=== PATIENT | female | born 1955 | race Caucasian/White ===

== ENCOUNTER 2018-08-03 08:48 | Inpatient (IN) ==
[2018-08-03] MEDS ORDERED: methylPREDNISolone 125 MG/2 ML VIAL IVP ONE (08:57)
[2018-08-03] MEDS ORDERED: IPRATROPIUM/ALBUTEROL SULFATE 3 ML NEB NEB ONE (08:57)
--- NOTE | 2018-08-03 09:04 | EKG ---
[address] [address] Measurements Intervals [place] Rate: 81 P: 64 WV: 170 QRS: 136 QRSD: 138 T: 12 QT: 390 QTc: 428 Interpretive Statements SINUS RHYTHM RIGHT BUNDLE BRANCH BLOCK [120+ ms QRS DURATION, UPRIGHT V1, 40+ ms S IN I/aVL/V4/V5/V6] LEFT POSTERIOR FASCICULAR BLOCK [QRS AXIS > 109, INFERIOR Q] No previous ECG available for comparison Electronically Signed On 08-03-18 09:06:57 MST by Nico Fishman MD [id number]
[2018-08-03 09:24] LABS: Hematocrit [HCT] 49.7 % (37.0-47.0); Hemoglobin [HGB] 15.2 g/dL (12.0-16.0); MEAN CORPUSCULAR HEMOGLOBIN 31.4 PG (27-31); MEAN CORPUSCULAR HGB CONC 30.6 g/dL (33-37); MEAN CORPUSCULAR VOLUME 102.7 FL (81-99); MEAN PLATELET VOLUME 9.3 FL (7.4-12.2); RED BLOOD COUNT 4.84 10^6/uL (4.20-5.40)
--- NOTE | 2018-08-03 09:32 | PDOC ---
Dyspnea HPI - General Chief Complaint: Respiratory Complaint Stated Complaint: SHORTNESS OF BREATH, DIZZINESS Date Seen by Provider: 08/03/18 Time Seen by Provider: 09:10 Source: POSITIVE: Patient - History of Present Illness Initial Comments: Patient is a 63-year-old female presents to the emergency department the chief complaint of worsening shortness of breath and malaise. She reports that for the past several days she's been feeling weak and tired. She is found to be hy poxic on room air was given a DuoNeb and treatment by EMS. She is then placed on several liters with mild improvement of her hypoxia. She isn't placed on 15 L nonrebreather with marked improvement. She denies any chest pain. She denies any lower extremity edema. She denies any blurred vision double vision dizziness diarrhea or constipation. She has been expressing fevers. - Patient Home Medications Home Medications: Home Medications tiotropium bromide 18 mcg capsule with inhalation device 1 cap INH QD #90 cap 03/18/18 fluticasone 250 mcg-salmeterol 50 mcg/dose blistr powdr for inhalation 1 inh INH BID #3 units 04/26/18 ipratropium-albuterol 0.5 mg-3 mg(2.5 mg base)/3 mL nebulization soln 3 ml INH Q4-6H #30 vial 04/26/18 lisinopril 20 mg tablet 20 mg PO QD #14 tab 04/26/18 metoprolol tartrate 50 mg tablet 50 mg PO BID #180 tab 04/26/18 albuterol sulfate HFA 90 mcg/actuation aerosol inhaler 2 puff INH Q4-6H PRN #3 units 04/27/18 rosuvastatin 20 mg tablet 20 mg PO QD #14 tab 04/27/18 - Patient Allergies Allergies/Adverse Reactions: Allergies Allergy/AdvReac Type Severity Reaction Status Date / Time No Known Drug Allergies Allergy NOT Verified 08/03/18 10:03 APPLICABLE Past Medical History - heen HEENT History: Denies History Cardiovascular History: Hypertension Respiratory History: COPD, Home Oxygen Use, Other (please comment) Additional Respiratory History: HOME BIPAP WITH 3 LITERS O2 BLEED IN Gastrointestinal History: Denies History Additional Gastrointestinal History: APPY OUT AGE 16 Genitourinary History: Denies History Endocrine History: Denies History Musculoskeletal History: Denies History Prosthesis or Implant: No Neurological History: Denies History Blood Disorders: Denies History Psychiatric History: Denies History History of Sexually Transmitted Diseases: No Cancer History: Denies History In Past Year Been Physically Harmed or Verbally Threatened: No History of MDRO: No Tobacco Use: Current Every Day Smoker Alcohol Use: Heavy Type of alcohol normally used: Beer, Hard Liquor In the Past 12 Months, Have Used or Abuse Any Substance: None Previous Surgical History: No Type / Date of Surgery: APPY Significant Family History: No pertinent family hx ROS Constitution: REPORTS: Other (Review of systems: 12 point review of systems negative unless otherwise indicated above.) Dyspnea Physical Exam - General Appearance General Appearance: REPORTS: Other (Physical examination: HEENT: TMs clear bilaterally mucous murmurs moist with pharyngeal erythema and edema. Neck: Supple nontender full range of motion. Eyes: Extraocular motion intact, PERRL. Cardiac: Regular rate and rhythm without murmurs or click. No reproducible chest wall pain. Respiratory: Coarse lung sounds bilaterally without wheezes or rhonchi. Abdomen: Soft, nontender, nondistended no rebound or guarding. : Deferred. Musculoskeletal: Strength 5/5 to flexion and extension of the upper and lower extremities bilaterally. Good machine edge bander strength bilaterally. Neuro: Deep tendon reflexes 2/4 in patellars bilaterally. No numbness in hands or feet. Skin: Warm and dry without rashes or lesions. Heme/lymph: No anterior cervical or superior clavicular lymphadenopathy. No lower extremity edema. Psychiatric: Patient oriented and responding appropriately. Denies suicidal and homicidal ideation.) Dyspnea Progress - Results Reviewed by me Xrays/CTs/US Reviewed by me: Yes Radiology Findings: Nonspecific pulmonary edema Lab Results Reviewed by Me: Yes CBC and BMP: 08/03/18 09:15 08/03/18 09:15 Lab Results:: Laboratory Results 08/03/18 08/03/18 08/03/18 09:15 09:15 09:15 WBC 4.33 L RBC 4.84 Hgb 15.2 Hct 49.7 H MCV 102.7 H MCH 31.4 H MCHC 30.6 L RDW Std Deviation 58.5 H RDW Coeff of Elliott 15.5 H Plt Count 123 L MPV 9.3 Neutrophils % (Manual) 78 Band Neutrophils % 12 H Lymphocytes % (Manual) 7 L Monocytes % (Manual) 3 Eosinophils % (Manual) 0 Basophils % (Manual) 0 Metamyelocytes % 0 Myelocytes % 0 Promyelocytes % 0 Blast Cells 0 WBC Morphology Comment Normal morphology Plt Morphology Comment Normal morphology RBC Morph Comment See comments VBG pH VBG pCO2 VBG HCO3 VBG Base Excess Sodium 136 Potassium 4.3 Chloride 96 L Carbon Dioxide 33 Anion Gap 7 BUN 7 Creatinine 0.4 L Estimated GFR > 60 BUN/Creatinine Ratio 17.50 Glucose 112 H Calculated Osmolality 280.0 Calcium 9.2 Total Bilirubin 0.5 AST 26 ALT 27 Alkaline Phosphatase 64 Troponin I < 0.012 NT-Pro-B Natriuret Pep Total Protein 6.6 Albumin 4.0 Globulin 2.5 Albumin/Globulin Ratio 1.60 08/03/18 08/03/18 09:15 09:18 WBC RBC Hgb Hct MCV MCH MCHC RDW Std Deviation RDW Coeff of Elliott Plt Count MPV Neutrophils % (Manual) Band Neutrophils % Lymphocytes % (Manual) Monocytes % (Manual) Eosinophils % (Manual) Basophils % (Manual) Metamyelocytes % Myelocytes % Promyelocytes % Blast Cells WBC Morphology Comment Plt Morphology Comment RBC Morph Comment VBG pH 7.32 VBG pCO2 68 H VBG HCO3 35 H VBG Base Excess 9 H Sodium Potassium Chloride Carbon Dioxide Anion Gap BUN Creatinine Estimated GFR BUN/Creatinine Ratio Glucose Calculated Osmolality Calcium Total Bilirubin AST ALT Alkaline Phosphatase Troponin I NT-Pro-B Natriuret Pep 335 H Total Protein Albumin Globulin Albumin/Globulin Ratio EKG Interpreted/Reviewed By Me:: Yes (no acute ST or QT abnormality) - Patient's Progress MDM / ED Course: An IV was established and the patient was connected to monitoring and evaluation advisor and closely observed in the emergency department. She required several breathing treatments in the emergency department without significant improvement of her hypoxia. EKG did not reveal any acute ST or QT abnormality. Her troponin was not elevated. Chest x-ray revealed nonspecific pulmonary edema. The patient was given 125 g of Solu-Medrol for wheezing and COPD component. She is given 40 g of Lasix IV for the pulmonary edema. Given the ongoing oxygen requirement I recommended admission to the hospital for further management. Her BMP was not markedly elevated. She did test positive for influenza A was given Tamiflu. I discussed these findings with Dr. Abundio Medina who agreed to admit the patient for further management coordination. - Consult Consult (If Yes, Name of Consulting MD & Time Called): Yes Consulting MD will see pt:: [facility] Patient Care Time - Estimated PCT Patient Care Time (In Minutes): 65 Vital Signs - Recent Vital Signs Vital Signs: Vital Signs (Last 8 hours) Temp Pulse Pulse Resp BP Pulse Ox 08/03/18 09:09 91 20 100 08/03/18 09:08 86 18 98 08/03/18 09:03 81 08/03/18 08:45 98.6 F 83 28 H 156/96 96 Discharge Clinical Impression: Influenza, Respiratory failure, Pulmonary edema Discharge Disposition: Admit to Observation Condition: Stable Follow Up With: PEARL LARSON [Primary Care Provider] - Care Transferred To: Abundio Medina Date Decision to Admit to Inpatient: 08/03/18 Time Decision to Admit to Inpatient: 10:27
[2018-08-03 09:39] LABS: BLOOD UREA NITROGEN 7 mg/dL (7-22)
[2018-08-03 09:41] LABS: PLATELET MORPHOLOGY COMMENT NORMAL MORPHOLOGY (NORM); RBC MORPHOLOGY COMMENT SEE COMMENTS (NORM); WBC MORPHOLOGY COMMENT NORMAL MORPHOLOGY (NORM)
[2018-08-03 09:42] LABS: BAND NEUTROPHILS % 12 % (0-10); BASOPHILS % (MANUAL) 0 % (0-1); EOSINOPHILS % (MANUAL) 0 % (0-8); METAMYELOCYTES % 0 %; MONOCYTES % (MANUAL) 3 % (0-12); MYELOCYTES % 0 %; NEUTROPHILS % (MANUAL) 78 % (50-80); PROMYELOCYTES % 0 %
[2018-08-03 09:46] LABS: VENOUS PH 7.32 (7.32-7.42)
--- NOTE | 2018-08-03 09:50 | DI ---
AP CHEST X-RAY, 08/03/2018 8:58 AM : Clinical History: Shortness of breath. Previous Exam: 06/05/2009. Soft Tissues: No acute soft tissue abnormality. Bones: Normal. Heart: Normal heart. Lungs: Acute pulmonary edema is present. With the normal sized heart, the differential would include acute myocardial infarction, an acute [employer] vascular accident, inhalation of a noxious gas, and acute r enal failure. Aspiration would be less likely. Effusion(s): None. Mediastinum: Normal mediastinum. Nodules: No pulmonary nodules. Reading: Acute pulmonary edema with normal-sized heart. Differential is as above.
[2018-08-03] MEDS ORDERED: FUROSEMIDE 10 MG/1 ML - 4 ML IVP ONE ×2 (10:14→12:08)
[2018-08-03] MEDS ORDERED: OSELTAMIVIR PHOSPHATE 75 MG CAPSULE PO ONE (10:15)
[2018-08-03] MEDS ORDERED: ONDANSETRON 4 MG/2 ML VIAL IV PRN (11:23)
[2018-08-03] MEDS ORDERED: Acetaminophen 1000mg Inj 1,000 MG/100 ML VIAL IV PRN (11:23)
[2018-08-03] MEDS ORDERED: LIDOCAINE HCL 2 % 10 ML JELLY URO-JECT TOPICAL PRN (11:23)
[2018-08-03] MEDS ORDERED: ALBUTEROL SULFATE 2.5 MG/3 ML NEB PRN (11:23)
[2018-08-03] MEDS ORDERED: LIDOCAINE W/ SODIUM BICARB 0.5 ML SYR SUBD PRN (11:23)
[2018-08-03] MEDS ORDERED: Sodium Chloride 0.9% 1,000 ML PRIMARY IV SCH (11:23)
--- NOTE | 2018-08-03 11:58 | PDOC ---
HPI - History of Present Illness Date of Service: 08/03/18 Time of Service: 11:52 Chief Complaint: Cough and shortness of breath History of Present Illness: This very pleasant 3-year-old female with COPD and hypertension and 1-1/2 packs per day smoking habit who comes in today with worsening shortness breath and cough. She states her symptoms started around Wednesday. She's had fevers and chills and a stridor breathing therapies and Tylenol and Motrin without a lot of relief over the last couple of days. When she came in to the emergency room, chest x-ray was consistent with pulmonary edema, and she was positive for influenza A. She states that she got the flu shot at the end of April. She states that interventions in the emergency room did help. She was found to be hypoxic, was cyanotic around the face, and had hypercapnia as well. She was placed on 15 L nonrebreather when the ambulance first arrived and was titrated down to 10 L here in the emergency room. She did get a dose of steroids at a dose of Tamiflu in the emergency room. Past Medical History Medical History: 1. COPD, on 3 L of oxygen at night. 2. Tobacco abuse at one and a half packs per day. 3. Hypertension Surgical History: 1. Remote history of appendectomy Pertinent Family History: No significant family history of heart disease. Past Social History: Smokes pack and half per day. Does not drink alcohol. . Has 2 children described as healthy. Lives in [place], [place]. Tobacco Use: Current Every Day Smoker In the Past 12 Months, Have Used or Abuse Any of the Following Substance: None Alcohol Use: None Medication / Allergies Home Medications: Home Medications Medication Instructions Recorded Confirmed Type tiotropium bromide 18 mcg capsule 1 cap INH QD #90 cap 03/18/18 08/03/18 Rx with inhalation device fluticasone 250 mcg-salmeterol 50 1 inh INH BID #3 units 04/26/18 08/03/18 Rx mcg/dose blistr powdr for inhalation ipratropium-albuterol 0.5 mg-3 3 ml INH Q4-6H #30 vial 04/26/18 08/03/18 Rx mg(2.5 mg base)/3 mL nebulization soln lisinopril 20 mg tablet 20 mg PO QD #14 tab 04/26/18 08/03/18 Rx metoprolol tartrate 50 mg tablet 50 mg PO BID #180 tab 04/26/18 08/03/18 Rx albuterol sulfate HFA 90 2 puff INH Q4-6H PRN #3 units 04/27/18 08/03/18 Rx mcg/actuation aerosol inhaler rosuvastatin 20 mg tablet 20 mg PO QD #14 tab 04/27/18 08/03/18 Rx Allergies/Adverse Reactions: Allergies Allergy/AdvReac Type Severity Reaction Status Date / Time No Known Drug Allergies Allergy NOT Verified 08/03/18 10:03 APPLICABLE Review of Systems - Review of Systems All Systems: Reviewed & No Additional Complaints Except as Stated (I did a 12 point review systems and it was negative other than that discussed below and in the history of present illness.) Exam - Vitals Vital Signs: Vital Signs Temperature 98.6 F Temperature Source Temporal Artery Scan Pulse Rate [Pulse Oximeter] 83 Pulse Rate 91 Respiratory Rate 20 Blood Pressure [Left Arm] 156/96 Pulse Ox 100 Oxygen Flow Rate 10 Oxygen Delivery Method Non-Rebreather Mask Height 5 ft 2 in Weight 230 lb During my examination, even on 10 L nonrebreather with an oxygen mask, the patient still desaturates to 88% at times and she is working hard at breathing at 20-30 times per minute. - General General Appearance: No Acute Distress, Cooperative - Head Head Exam: Normal Inspection, Normocephalic, Atraumatic - Eye Eye Exam: POSITIVE: No Scleral Icterus - ENT ENT Exam: POSITIVE: Mucous Membranes Moist - Neck Neck Exam: Normal Inspection, No Tenderness, No Lymphadenopathy, No Thyromegaly, JVP is not Raised - Respiratory Respiratory Exam: POSITIVE: Coarse Breath Sounds, Respiratory Distress (Is working hard to breathe at 20-30 times per minute) Additional Respiratory Exam Details: Cyanotic around the lips and cheeks - Cardiovascular Cardiovascular Exam: POSITIVE: No Murmur, No Clicks, No Gallops, No Rubs, Tachycardia, No JVD - GI/Abdominal GI/Abdominal Exam: POSITIVE: Normal Bowel Sounds, Non Tender, Non Distended, Soft - Extremities Extremities Exam: POSITIVE: No Clubbing Present, No Edema Present, No Cyanosis Present - Back Back Exam: POSITIVE: No CVA Tenderness - Neurological Neurological Exam: POSITIVE: Alert, Oriented x 3, No Facial Droop, Speech Intact / Clear, Moves All Extremities Equally - Psychiatric Psychiatric Exam: POSITIVE: Normal Affect, Normal Mood - Integumentary Integumentary Exam: POSITIVE: Cyanosis Results - Labs CBC and BMP: 08/03/18 09:15 08/03/18 09:15 Additional Lab Results: Laboratory Results 08/03/18 08/03/18 08/03/18 09:15 09:15 09:15 WBC 4.33 L RBC 4.84 Hgb 15.2 Hct 49.7 H MCV 102.7 H MCH 31.4 H MCHC 30.6 L RDW Std Deviation 58.5 H RDW Coeff of Elliott 15.5 H Plt Count 123 L MPV 9.3 Neutrophils % (Manual) 78 Band Neutrophils % 12 H Lymphocytes % (Manual) 7 L Monocytes % (Manual) 3 Eosinophils % (Manual) 0 Basophils % (Manual) 0 Metamyelocytes % 0 Myelocytes % 0 Promyelocytes % 0 Blast Cells 0 WBC Morphology Comment Normal morphology Plt Morphology Comment Normal morphology RBC Morph Comment See comments VBG pH VBG pCO2 VBG HCO3 VBG Base Excess Sodium 136 Potassium 4.3 Chloride 96 L Carbon Dioxide 33 Anion Gap 7 BUN 7 Creatinine 0.4 L Estimated GFR > 60 BUN/Creatinine Ratio 17.50 Glucose 112 H Calculated Osmolality 280.0 Calcium 9.2 Total Bilirubin 0.5 AST 26 ALT 27 Alkaline Phosphatase 64 Troponin I < 0.012 NT-Pro-B Natriuret Pep Total Protein 6.6 Albumin 4.0 Globulin 2.5 Albumin/Globulin Ratio 1.60 08/03/18 08/03/18 09:15 09:18 WBC RBC Hgb Hct MCV MCH MCHC RDW Std Deviation RDW Coeff of Elliott Plt Count MPV Neutrophils % (Manual) Band Neutrophils % Lymphocytes % (Manual) Monocytes % (Manual) Eosinophils % (Manual) Basophils % (Manual) Metamyelocytes % Myelocytes % Promyelocytes % Blast Cells WBC Morphology Comment Plt Morphology Comment RBC Morph Comment VBG pH 7.32 VBG pCO2 68 H VBG HCO3 35 H VBG Base Excess 9 H Sodium Potassium Chloride Carbon Dioxide Anion Gap BUN Creatinine Estimated GFR BUN/Creatinine Ratio Glucose Calculated Osmolality Calcium Total Bilirubin AST ALT Alkaline Phosphatase Troponin I NT-Pro-B Natriuret Pep 335 H Total Protein Albumin Globulin Albumin/Globulin Ratio - EKG Data -: EKG Interpreted by Me Rate: Normal EKG Shows Normal: Sinus Rhythm - EKG Data EKG Interpretation: Other - Imaging Status: Image Reviewed by Me (CXR, on my view, consistent with pulmonary edema.) Assessment and Plan - Patient Problems (1) Acute respiratory failure with hypoxia and hypercapnia Current Visit: Yes Status: Acute Code(s): J96.01 - Acute respiratory failure with hypoxia; J96.02 - Acute respiratory failure with hypercapnia (2) Influenza Current Visit: Yes Status: Acute Code(s): J11.1 - Influenza due to unidentified influenza virus with other respiratory manifestations (3) COPD (chronic obstructive pulmonary disease) Current Visit: Yes Status: Chronic Code(s): J44.9 - Chronic obstructive pulmonary disease, unspecified Qualifiers: COPD type: chronic bronchitis Chronic bronchitis type: simple Qualified Code(s): J41.0 - Simple chronic bronchitis (4) Obesity Current Visit: Yes Status: Chronic Code(s): E66.9 - Obesity, unspecified Qualifiers: Obesity type: due to excess calories Obesity classification: adult class 3 (BMI >= 40) Serious obesity comorbidity presence: with serious comorbidity B jhonatan mass index: BMI 40.0-44.9 Qualified Code(s): E66.01 - Morbid (severe) obesity due to excess calories; Z68.41 - Body mass index (BMI) 40.0-44.9, adult (5) Hypertension Current Visit: Yes Status: Chronic Code(s): I10 - Essential (primary) hypertension Qualifiers: Hypertension type: essential hypertension Qualified Code(s): I10 - Essential (primary) hypertension - Assessment / Plan Additional Assessment/Plan Details: Admit to ICU. Breathing therapies and supportive care for influenza A. Hold off on IV fluids with pulmonary edema, we'll give another dose of Lasix now, and see how patient responds to fluid balance. May get echocardiogram at possible. Tamiflu. We'll plan on a 5 day course patient states that she did have flu vaccine. I offered to write a prescription for her for prophylactic Tamiflu as well. Smoking cessation and nicotine patch. Vapotherm during the day, and BiPAP therapy at night. I spoke with the fisher quahog with our eICU program and that's what she suggested and I think that that makes most sense for the patient. I would push the chest x-ray up to Jason just on the off chance that the patient gets worse, develops ARDS, and ends up needing shift. I told the patient it would be touch and go. Possible she could get worse. She is full code. She understands that she is very ill. Droplet precautions. Labs in a.m. Venous blood gas in a.m. Prognosis guarded.
[2018-08-03] MEDS ORDERED: NICOTINE 21 MG /DAY PATCH TRANSDERM ONE (12:06)
[2018-08-03] MEDS: IPRATROPIUM/ALBUTEROL SULFATE 3 ML NEB NEB SCH ×2 (13:12→18:23)
[2018-08-03] MEDS ORDERED: Rosuvastatin Tab 20 MG TAB PO SCH (21:00)
[2018-08-03] MEDS: OSELTAMIVIR PHOSPHATE 75 MG CAPSULE PO SCH (21:06)
[2018-08-03] MEDS: Metoprolol TARTRATE Tab 50 MG TAB PO SCH (21:06)
[2018-08-04] MEDS: IPRATROPIUM/ALBUTEROL SULFATE 3 ML NEB NEB SCH ×2 (00:46→06:09)
[2018-08-04 05:11] LABS: VENOUS PH 7.28 (7.32-7.42)
[2018-08-04 05:57] LABS: BASOPHILS # (AUTO) 0.01 10*3/UL; BASOPHILS % (AUTO) 0.2 % (0-1); EOSINOPHILS # (AUTO) 0 10*3/UL; EOSINOPHILS % (AUTO) 0 % (0-8); Hematocrit [HCT] 49.7 % (37.0-47.0); LYMPHOCYTES # (AUTO) 0.46 10*3/uL; MEAN CORPUSCULAR HEMOGLOBIN 31.3 PG (27-31); MEAN CORPUSCULAR HGB CONC 30.2 g/dL (33-37); MEAN CORPUSCULAR VOLUME 103.5 FL (81-99); MONOCYTES # (AUTO) 0.49 10*3/UL (0.3-0.8); MONOCYTES % (AUTO) 11.6 % (5-15); NEUTROPHILS # (AUTO) 3.22 10*3/UL; NEUTROPHILS % (AUTO) 76.6 % (50-80)
[2018-08-04 06:18] LABS: BLOOD UREA NITROGEN 14 mg/dL (7-22); SERUM ALBUMIN 3.8 g/dL (3.5-4.8)
[2018-08-04 06:31] LABS: PLATELET MORPHOLOGY COMMENT NORMAL MORPHOLOGY (NORM); RBC MORPHOLOGY COMMENT NORMAL MORPHOLOGY (NORM); WBC MORPHOLOGY COMMENT NORMAL MORPHOLOGY (NORM)
--- NOTE | 2018-08-04 08:36 | EKG ---
[address] [address] Measurements Intervals [place] Rate: 65 P: 90 OR: 175 QRS: 229 QRSD: 138 T: 43 QT: 424 QTc: 436 Interpretive Statements SINUS RHYTHM WITH SINUS ARRHYTHMIA INDETERMINATE AXIS RIGHT BUNDLE BRANCH BLOCK [120+ ms QRS DURATION, UPRIGHT V1, 40+ ms S IN I/aVL/V4/V5/V6] LEFT POSTERIOR FASCICULAR BLOCK [QRS AXIS > 109, INFERIOR Q] Compared to ECG 08/03/2018 09:03:42 Indeterminate axis now present Electronically Signed On 08-04-18 09:32:02 MST by Nico Fishman MD [id number]
[2018-08-04] MEDS ORDERED: NICOTINE 21 MG /DAY PATCH TRANSDERM SCH (09:00)
[2018-08-04] MEDS ORDERED: PANTOPRAZOLE IV 40 MG VIAL IVP SCH (09:00)
[2018-08-04] MEDS ORDERED: Patch Removal PATCH TRANSDERM SCH (09:00)
[2018-08-04] MEDS ORDERED: LISINOPRIL 20 MG TABLET PO SCH (09:00)
[2018-08-04] MEDS ORDERED: ENOXAPARIN SODIUM 40 MG/0.4 ML SYRINGE SUBCUT SCH (09:00)
[2018-08-04] MEDS ORDERED: ASPIRIN 81 MG (BABY) CHEWABLE TABLET ONE (09:08)
[2018-08-04] MEDS ORDERED: ASPIRIN 81 MG (BABY) CHEWABLE TABLET PO SCH (09:15)
[2018-08-04 09:36] LABS: VENOUS PH 7.29 (7.32-7.42)
[2018-08-04] MEDS: Metoprolol TARTRATE Tab 50 MG TAB PO SCH (09:41)
[2018-08-04] MEDS: OSELTAMIVIR PHOSPHATE 75 MG CAPSULE PO SCH (09:42)
[2018-08-04 10:20] VITALS: O2SAT 94
--- NOTE | 2018-08-04 10:31 | DI ---
CT CTA Chest Non-Coronary WWO 08/04/2018 8:57 AM History: [facility] [place] ^PE ^if d dimer negative cancel order Comparison: Chest x-ray 04/04/2014. Procedure: CT angiography of the pulmonary arteries was performed after the administration of 65 mL o f Isovue intravenous contrast. Findings: Contrast bolus timing is suboptimal. There is normal opacification of the main and proximal segmental pulmonary arteries with no evidence of filling defect. Evaluation for more distal emboli i s limited. Evaluation of the lungs demonstrates patchy groundglass nodules and tree in bud opacities in the upper lobes. There is no dense consolidation, pleural effusion, or pneumothorax. Scar versus a telectasis is noted along the medial right middle lobe and lingula. There is moderate to severe diffu se bronchial wall thickening. Shotty mediastinal and hilar lymph nodes are present, not pathologicall y enlarged by CT size criteria. The aorta and branch vessels demonstrate normal course and caliber. T here are scattered atheromatous aortic and coronary artery calcifications. Heart size is within rodríguez l limits with no pericardial effusion. The thyroid exhibits normal CT morphology. The visualized upper abdominal structures are unremarkable. The osseous structures are normal for age. There is no evidence of acute or healing rib fractures. Impression: 1. No main or proximal segmental pulmonary embolism. 2. Patchy groundglass nodules and tree in but opacities in the upper lobes. This is a nonspecific fin ding with a broad differential that includes infectious and inflammatory etiologies. A neoplastic pro cess cannot be excluded and repeat imaging 6 weeks following completion of therapy is recommended in order to ensure resolution. 3. Moderate to severe diffuse bronchial wall thickening. Associated with acute versus chronic bronchi tis.
--- NOTE | 2018-08-04 10:56 | DCSUMMARY ---
Hospitalization Summary Admit Date: 08/03/2017 Discharge Date: 08/04/18 Primary Diagnosis:: acute on chronic hypercapnic and hypoxic respiratory dong Secondary Diagnosis:: Respiratory failure, EKG changes with T-wave inversions in precordial leads, COPD with CO2 retention. Hospital Course: This very pleasant 63-year-old female that presented here yesterday with acute on chronic respiratory failure, hypercapnic and hypoxic, and was found to be positive for influenza A. She was admitted, maintained on Vapotherm therapy through the day, BiPAP overnight. Her CO2 is elevated, but she actually clinically feels better and is breathing a little less labored on BiPAP this morning. Are very astute RN noticed that the patient had some EKG changes on the telemetry monitoring and an EKG was ordered and the patient was found to have T-wave inversions in the precordial leads that were new from EKG at admission. The patient was also managed in conjunction with her eICU specialist, and in discussion we felt it would be best to move the patient to a higher level of care for continued cardiac evaluation in the setting of this acute respiratory failure and influenza. Initial troponin is negative. CPK was slightly elevated. The patient states that she feels somewhat better from a shortness of breath standpoint. She still quite wheezy on examination. She is requiring BiPAP to maintain her oxygen saturations. She denies any chest pain despite EKG changes. The patient does not have any nausea or vomiting. An echocardiogram was performed yesterday and the results are pending. CT scan of the chest was done today. It is negative for pulmonary emboli. I did review the study. There is what appears to be fairly severe emphysema and probable bronchiectasis as well, the radiologist did not see any evidence of pulmonary emboli. I do not see any infiltrate. Assessment and Plan: 1. As per discharge assessments noted 2. Disposition: Patient is discharged to [facility] 3. Condition on discharge, stable and improved. Based on EKG changes, the patient's condition could deteriorate, but she is stabilized to the best of our ability here and is in no imminent danger of needing intubation on her current settings of BiPAP. Again this could certainly change based on her underlying condition 4. Diet: regular diet 5. Activities: As per [facility] physicians 6. Follow-Up: 1. Primary care physician in [place], [place] 7 days post discharge 2. 7. Medications at the Time of Discharge: Active Medications Generic Name Dose Route Start Last Admin Trade Name Freq PRN Reason Stop Dose Admin Albuterol Sulfate 2.5 mg 08/03/18 11:23 Albuterol Neb Soln 0.083% NEB RTQ4H PRN Shortness of Breath Albuterol/Ipratropium 3 ml 08/03/18 13:00 08/04/18 06:09 Duoneb Neb Soln NEB 3 ml RTQ6H ALISHA Administration Aspirin 162 mg 08/04/18 09:15 08/04/18 09:00 Aspirin Chewable Tab PO 162 mg STAT ALISHA Administration Enoxaparin Sodium 40 mg 08/04/18 09:00 08/04/18 09:41 Lovenox Inj SUBCUT 40 mg DAILY ALISHA Administration Acetaminophen 1,000 mg in 100 mls @ 400 mls/hr 08/03/18 11:23 Ofirmev 1000mg Inj IV Q6H PRN Pain Sodium Chloride 25 mls @ 200 mls/hr 08/03/18 11:23 Normal Saline 0.9% IV .Post Infusion PRN No Primary IV for Flush ONLY Lidocaine HCl 10 ml 08/03/18 11:23 Xylocaine Uro-Ject 2% TOPICAL ONCE PRN Discomfort catheter insertion Lidocaine HCl 0.5 ml 08/03/18 11:23 Lidocaine Buffered Inj SUBD ONCE PRN IV Starts Lisinopril 20 mg 08/04/18 09:00 08/04/18 09:41 Prinivil PO 20 mg DAILY ALISHA Administration Metoprolol Tartrate 50 mg 08/03/18 21:00 08/04/18 09:41 Lopressor Tab PO 50 mg BID ALISHA Administration Nicotine 1 patch 08/04/18 09:00 08/04/18 09:42 Nicoderm Cq 21mg Patch TRANSDERM 1 patch DAILY ALISHA Administration Non-Formulary Medication 1 08/04/18 09:00 08/04/18 09:43 Remove Patch TRANSDERM 1 DAILY ALISHA Administration Ondansetron HCl 4 mg 08/03/18 11:23 Zofran Inj IV Q4H PRN NAUSEA / VOMITING Oseltamivir Phosphate 75 mg 08/03/18 21:00 08/04/18 09:42 Tamiflu PO 75 mg BID ALISHA Administration Pantoprazole Sodium 40 mg 08/04/18 09:00 08/04/18 09:42 Protonix Inj IVP 40 mg DAILY ALISHA Administration Rosuvastatin Calcium 20 mg 08/03/18 21:00 08/03/18 21:06 Crestor PO 20 mg BEDTIME ALISHA Administration 8. Time, care, counseling and coordination of care for this discharge is greater than 30 minutes. Exam - Vitals Vital Signs: Vital Signs Temperature 97.6 F Temperature Source Temporal Artery Scan Pulse Rate [Telemetry] 75 Pulse Rate [Apical] 64 Pulse Rate [Pulse Oximeter] 64 Pulse Rate 62 Respiratory Rate 24 Blood Pressure [Right Arm] 115/63 Blood Pressure [Right Radial 115/63 Artery] Blood Pressure [Left Arm] 119/53 Blood Pressure 135/65 Pulse Ox 94 Oxygen Flow Rate 30 Oxygen Delivery Method Bi-PAP Height 5 ft 2 in Weight 234 lb 3.2 oz - General General Appearance: Cooperative, Obese - Head Head Exam: Normal Inspection, Normocephalic, Atraumatic - Eye Eye Exam: POSITIVE: No Scleral Icterus - ENT ENT Exam: POSITIVE: Mucous Membranes Moist - Respiratory Respiratory Exam: POSITIVE: Breathing Non Labored (On BiPAP at this time nonlabored), Wheezes, Coarse Breath Sounds - Cardiovascular Cardiovascular Exam: POSITIVE: RRR, No Murmur, No Clicks, No Gallops, No Rubs, No JVD - GI/Abdominal GI/Abdominal Exam: POSITIVE: Normal Bowel Sounds, Non Tender, Non Distended, Soft - Extremities Extremities Exam: POSITIVE: +1 Edema (Trace lower extremity edema present) - Neurological Neurological Exam: POSITIVE: Alert, Oriented x 3, No Facial Droop, Speech Intact / Clear, Moves All Extremities Equally - Psychiatric Psychiatric Exam: POSITIVE: Normal Affect, Normal Mood - Integumentary Integumentary Exam: POSITIVE: Cyanosis (Interface. Seems more pronounced today despite improvement in symptoms.) Data Peritnent Studies: Laboratory Results 08/04/18 08/04/18 08/04/18 05:00 05:00 05:00 WBC 4.21 L RBC 4.80 Hgb 15.0 Hct 49.7 H MCV 103.5 H MCH 31.3 H MCHC 30.2 L RDW Std Deviation 58.9 H RDW Coeff of Elliott 15.6 H Plt Count 128 L MPV 10.0 Immature Gran % (Auto) 0.7 Neut % (Auto) 76.6 Lymph % (Auto) 10.9 [place] % (Auto) 11.6 Eos % (Auto) 0 Baso % (Auto) 0.2 Immature Gran # (Auto) 0.03 Neut # (Auto) 3.22 Lymph # (Auto) 0.46 [place] # (Auto) 0.49 Eos # (Auto) 0 Baso # (Auto) 0.01 WBC Morphology Comment Normal morphology Plt Morphology Comment Normal morphology RBC Morph Comment Normal morphology D-Dimer VBG pH VBG pCO2 VBG HCO3 VBG Base Excess Sodium 136 Potassium 4.2 Chloride 94 L Carbon Dioxide 37 H Anion Gap 5 BUN 14 Creatinine 0.5 Estimated GFR > 60 BUN/Creatinine Ratio 28.00 H Glucose 107 Calculated Osmolality 282.0 Lactic Acid 0.7 Calcium 9.3 Total Bilirubin 0.5 AST 27 ALT 24 Alkaline Phosphatase 59 Total Creatine Kinase Troponin I Total Protein 6.5 Albumin 3.8 Globulin 2.6 Albumin/Globulin Ratio 1.40 08/04/18 08/04/18 08/04/18 05:00 08:55 08:55 WBC RBC Hgb Hct MCV MCH MCHC RDW Std Deviation RDW Coeff of Elliott Plt Count MPV Immature Gran % (Auto) Neut % (Auto) Lymph % (Auto) [place] % (Auto) Eos % (Auto) Baso % (Auto) Immature Gran # (Auto) Neut # (Auto) Lymph # (Auto) [place] # (Auto) Eos # (Auto) Baso # (Auto) WBC Morphology Comment Plt Morphology Comment RBC Morph Comment D-Dimer VBG pH 7.28 L VBG pCO2 82 H VBG HCO3 39 H VBG Base Excess 12 H Sodium Potassium Chloride Carbon Dioxide Anion Gap BUN Creatinine Estimated GFR BUN/Creatinine Ratio Glucose Calculated Osmolality Lactic Acid Calcium Total Bilirubin AST ALT Alkaline Phosphatase Total Creatine Kinase 151 H Troponin I < 0.012 Total Protein Albumin Globulin Albumin/Globulin Ratio 08/04/18 08/04/18 09:00 09:32 WBC RBC Hgb Hct MCV MCH MCHC RDW Std Deviation RDW Coeff of Elliott Plt Count MPV Immature Gran % (Auto) Neut % (Auto) Lymph % (Auto) [place] % (Auto) Eos % (Auto) Baso % (Auto) Immature Gran # (Auto) Neut # (Auto) Lymph # (Auto) [place] # (Auto) Eos # (Auto) Baso # (Auto) WBC Morphology Comment Plt Morphology Comment RBC Morph Comment D-Dimer 0.64 H VBG pH 7.29 L VBG pCO2 87 H VBG HCO3 42 H VBG Base Excess 15 H Sodium Potassium Chloride Carbon Dioxide Anion Gap BUN Creatinine Estimated GFR BUN/Creatinine Ratio Glucose Calculated Osmolality Lactic Acid Calcium Total Bilirubin AST ALT Alkaline Phosphatase Total Creatine Kinase Troponin I Total Protein Albumin Globulin Albumin/Globulin Ratio Blood cultures are negative at this point. influenza A positive Procedures: [address] Medicine. [facility] [place] [id number] PH: DD: [phone] FAX: [phone] ~DIAGNOSTIC IMAGING REPORT~ Patient: Christine Krishnamurthy : 1955 Sex: F Age: 63 Exam Name: CT CTA Chest Non-Coronary [facility] Exam Date: 08/04/18 Report # : [id number] CPT Code: 00032 EMR/MR #: [id number] Ordering: Jodi Jeffery Admiting: MARSHA KASPER DO Primary: Benny Polk MD Attending: MARSHA KASPER DO Signed CT CTA Chest Non-Coronary [facility] 08/04/2018 8:57 AM History: [facility] [place] ^if d dimer negative cancel order Comparison: Chest x-ray 04/04/2014. Procedure: CT angiography of the pulmonary arteries was performed after the administration of 65 mL of Isovue intravenous contrast. Findings: Contrast bolus timing is suboptimal. There is normal opacification of the main and proximal segmental pulmonary arteries with no evidence of filling defect. Evaluation for more distal emboli is limited. Evaluation of the lungs demonstrates patchy groundglass nodules and tree in bud opacities in the upper lobes. There is no dense consolidation, pleural effusion, or pneumothorax. Scar versus atelectasis is noted along the medial right middle lobe and lingula. There is moderate to severe diffuse bronchial wall thickening. Shotty mediastinal and hilar lymph nodes are present, not pathologically enlarged by CT size criteria. The aorta and branch vessels demonstrate normal course and caliber. There are scattered atheromatous aortic and coronary artery calcifications. Heart size is within normal limits with no pericardial effusion. The thyroid exhibits normal CT morphology. The visualized upper abdominal structures are unremarkable. The osseous structures are normal for age. There is no evidence of acute or healing rib fractures. Impression: 1. No main or proximal segmental pulmonary embolism. 2. Patchy groundglass nodules and tree in but opacities in the upper lobes. This is a nonspecific finding with a broad differential that includes infectious and inflammatory etiologies. A neoplastic process cannot be excluded and repeat imaging 6 weeks following completion of therapy is recommended in order to ensure resolution. 3. Moderate to severe diffuse bronchial wall thickening. Associated with acute versus chronic bronchitis. Dictated By: 08/04/18 1022 JOANA AMEZCUA MD. Signed By: 08/04/18 1031 JOANA AMEZCUA MD. Patient Problems - Patient Problem List (1) Acute respiratory failure with hypoxia and hypercapnia Current Visit: Yes Status: Acute Code(s): J96.01 - Acute respiratory failure with hypoxia; J96.02 - Acute respiratory failure with hypercapnia Category: Medical (2) Influenza Current Visit: Yes Status: Acute Code(s): J11.1 - Influenza due to unidentified influenza virus with other respiratory manifestations Category: Medical (3) COPD (chronic obstructive pulmonary disease) Current Visit: Yes Status: Chronic Code(s): J44.9 - Chronic obstructive pulmonary disease, unspecified Qualifiers: COPD type: chronic bronchitis Chronic bronchitis type: simple Qualified Code(s): J41.0 - Simple chronic bronchitis Category: Medical (4) Obesity Current Visit: Yes Status: Chronic Code(s): E66.9 - Obesity, unspecified Qualifiers: Obesity type: due to excess calories Obesity classification: adult class 3 (BMI >= 40) Serious obesity comorbidity presence: with serious comorbidity Body mass index: BMI 40.0-44.9 Qualified Code(s): E66.01 - Morbid (severe) obesity due to excess calories; Z68.41 - Body mass index (BMI) 40.0-44.9, adult Category: Medical (5) Hypertension Current Visit: Yes Status: Chronic Code(s): I10 - Essential (primary) hypertension Qualifiers: Hypertension type: essential hypertension Qualified Code(s): I10 - Essential (primary) hypertension Category: Medical (6) Acute electrocardiogram changes Current Visit: Yes Status: Acute Code(s): R94.31 - Abnormal electrocardiogram [ECG] [EKG] Category: Medical (7) T wave inversion in EKG Current Visit: Yes Status: Acute Code(s): R94.31 - Abnormal electrocardiogram [ECG] [EKG] Category: Medical
[2018-08-04 11:37] VITALS: BP 113/67; RESP 18; TEMP 98
== END 2018-08-04 11:32 | disposition short-term general hospital (02) | DRG 189 ==
LOC: ER 08:48 → ICU 11:00
PROVIDERS: ADMIT Family Medicine; ATTEND Family Medicine